=== PATIENT | female | born 1985 | race Caucasian/White ===

== ENCOUNTER 2018-10-14 21:29 | Emergency (ER) | payer SELFPAY ==
[~2018-10-14] VITALS: Ht 162.6 cm; Wt 142.0 kg
[2018-10-14 21:47] VITALS: Ht 162.6 cm; Wt 142.0 kg
[2018-10-14 22:14] LABS: BASOPHIL % 0.7 % (0-2); PLATELET COUNT 203 x10^3mcL (130-400)
[2018-10-14 22:15] LABS: RED CELL DISTRIBUTION WIDTH 16.1 % (11.5-14.5)
[2018-10-14 22:47] VITALS: BP 155/99
== END 2018-10-14 22:48 | disposition home or self-care (01) ==
LOC: ED 21:29
PROVIDERS: Emergency Medicine
DX: N93.8 Other specified abnormal uterine and vaginal bleeding (principal); E11.9 Type 2 diabetes mellitus without complications; D69.3 Immune thrombocytopenic purpura; Z88.8 Allergy status to other drugs, medicaments and biological substances
CPT/HCPCS: 36415